=== PATIENT | female | born 1970 | race African-American/Black ===

== ENCOUNTER → 2020-03-30 | Outpatient (CLI) | payer BC ==
[~2020-03-30] MED LIST: REGADENOSON 0.4 MG/5 ML DISP.SYRIN. IV ONE
--- NOTE | 2020-03-31 11:50 | RAD ---
MR#: [id number] Date of Study: 03/31/2020 Ordering Physician: MALA DUENAS, Referring Physician: FILI BACA Tech: NICA Grande, ARRT (R) (N) APPROVED REPORT Test Type: Pharmacological Stress Nurse/Tech: Dewey Ricardo RN Test Indications: PreOP Surgery- Bariatric Sx Cardiac History: HTN, See EMR. Medications: See EMR. Medical History: See EMR. Resting ECG: SR Resting Heart Rate: 72 bpm Resting Blood Pressure: 129/66mmHg Pretest Chest Pain: No chest pain Nurse/Tech Notes Lungs CTA, Heart tones regular. Consent: The procedure was explained to the patient in lay terms. Informed consent was witnessed. Miguel eout was entered into [employer] [facility]. History and Stress Test performed by RT En (R) (N) Pharm. Details Pharmacologic stress testing was performed using 0.4mg per 5ml of regadenoson given intravenously ove r 7-10 seconds. Stress Symptoms No chest pain or symptoms. POST EXERCISE Reason for Termination: Infusion complete Max HR: 96 bpm Max Blood Pressure: 118/60mmHg Blood Pressure response to exercise: Normal blood pressure response during stress. Heart Rate response to exercise: WNL Chest Pain: No. Arrhythmia: No. ST Change: No. INTERPRETATION Stress EKG Conclusion: No evidence of stress induced EKG changes. Imaging Protocol IMAGE PROTOCOL: Rest Tc-99m/stress Tc-99m 2 days Rest: Stress: Viability: Radiopharm.Tc99m GqouietwhKk82h Sestamibi Bibd67nIp 31mCi Img Date 03/30/2020 03/31/2020 Inj-Img Nbog27htt. 60min. Rest Admin Site:IV - Left AntecubitalAdministrator:RT Gill (R)(N) Stress Admin Site: IV - Left AntecubitalAdministrator: RT Anais GaticaR)(N) STRESS DATA End Diast. Vol.109.0mlAv. Heart Rate85.0bpm End Syst. Vol.36.0mlCO Index BSA0.0L/min Myocardial Jbxk643.0gEject. Tudilukw88.0% Stress Rates Pk. Fill Rate3.18EDV/secLVtime Pk. Fill 104.95msec Pk. Empty Rate3.05ESV/secLVtime Pk. Eoxpq812.43msec /3 Pk. Fill2.22EDV/sec Stress Scores Regional WT0.00Summed WT1.00 Regional WM0.00Summed WM4.00 LV Perfusion Significant motion artifact precludes accurate assessment but grossly there appears to be a small sev ere intensity reversible defect at the apex. Rest images are obscured by artifact in the basal to mi d septal and anterior segments. Ejection fraction is normal at 65%. EKG is grossly unremarkable. LV Perf. Quant 17 Seg. SSS6.00 17 Seg. SRS0.00 17 Seg. SDS6.00 Stress Defect Extent (% LAD)6.90Rest Defect Extent (% LAD)2.50Rev. Defect Extent (% LAD)6.90 Stress Defect Extent (% LCX) 38.80Rest Defect Extent (% LCX)0.00Rev. Defect Extent (% LCX)38.80 Stress Defect Extent (% RCA)0.00Rest Defect Extent (% RCA)0.00Rev. Defect Extent (% RCA)0.00 Stress Defect Extent (% MARYANNE)13.70Rest Defect Extent (% MARYANNE)0.90Rev. Defect Extent (% MARYANNE)13.70 Other Information Quality:Poor Risk Assessment: Moderate Risk Conclusion 1. Overall, poor quality study. Rest images are obscured by subdiaphragmatic artifact. 2. Grossly no evidence of EKG changes to suggest ischemia 3. Probable small size severe intensity reversible defect located at the apex. No evidence of transi ent ischemic dilatation. 4. Normal ejection fraction with an EF greater than 60%. 5. Moderate risk study. Signed by : Alli Hicks, Electronically Approved : 03/31/2020 11:49:28
--- NOTE | 2020-03-31 15:54 | CARD ---
MR#: [id number] Date of Study: 03/31/2020 Ordering Physician: MALA DUENAS, Referring Physician: MALA DUENAS Tech: Berna Francis RDCS APPROVED REPORT EXAM: Two-dimensional and M-mode echocardiogram with Doppler and color Doppler. Other Information Quality : Good INDICATION Pre-Op Morbid Obesity 2D DIMENSIONS RVDd3.0 (2.9-3.5cm)Left Atrium(2D)3.7 (1.6-4.0cm) IVSd1.0 (0.7-1.1cm)Aortic Root(2D)2.5 (2.0-3.7cm) LVDd4.9 (3.9-5.9cm)LVOT Diameter2.0 (1.8-2.4cm) PWd1.1 (0.7-1.1cm)LVDs2.5 (2.5-4.0cm) FS (%) 30.0 %SV88.8 ml LVEF(%)60.0 (>50%) Aortic Valve AoV Peak Ronny.220.2cm/sAoV VTI37.9cm AO Peak GR.19.4mmHgLVOT Peak Ronny.165.1cm/s AO Mean GR.9mmHgAVA (VMAX)2.34cm2 GREGORY (VTI)2.50cm2 Mitral Valve MV E Gnxaetgm786.2cm/sMV DECEL [id number] MV A Ydymlphu49.4cm/sE/A Ratio1.2 Tricuspid Valve TR P. Exfbzjjb744xm/sRAP VZXAPEQX2pvXw TR Peak Gr.62miLxZHWQ61mxQh Pulmonary Vein S1 Keeutykb48.5cm/sD2 Xdaarobb29.0cm/s LEFT VENTRICLE The left ventricle is normal size. There is normal left ventricular wall thickness. The left ventricu lar systolic function is normal and the ejection fraction is within normal range. The Ejection Fracti on is 55-60%. There is normal LV segmental wall motion. The left ventricular diastolic function and f illing is normal for age. RIGHT VENTRICLE The right ventricle is normal size. The right ventricular systolic function is normal. ATRIA The left atrium size is normal. The right atrium size is normal. The interatrial septum is intact wit h no evidence for an atrial septal defect or patent foramen ovale as noted on 2-D or Doppler imaging. AORTIC VALVE The aortic valve is normal in structure and function. Doppler and Color Flow revealed no significant aortic regurgitation. There is no significant aortic valvular stenosis. MITRAL VALVE The mitral valve is normal in structure and function. There is no evidence of mitral valve prolapse. There is no mitral valve stenosis. Doppler and Color Flow revealed no mitral valve regurgitation note d. TRICUSPID VALVE The tricuspid valve is normal in structure and function. Doppler and Color Flow revealed no tricuspid valve regurgitation noted. There is no tricuspid valve stenosis. PULMONIC VALVE The pulmonic valve is not well visualized. Doppler and Color Flow revealed no pulmonic valvular regur gitation. There is no pulmonic valvular stenosis. GREAT VESSELS The aortic root is normal in size. The ascending aorta is normal in size. The IVC is normal in size a nd collapses >50% with inspiration. PERICARDIAL EFFUSION There is no evidence of significant pericardial effusion. Critical Notification Critical Value: No <Conclusion> The left ventricular systolic function is normal and the ejection fraction is within normal range. Th e Ejection Fraction is 55-60%. There is normal LV segmental wall motion. Signed by : Alli Hicks, Electronically Approved : 03/31/2020 15:54:18
== END | disposition home or self-care (01) ==
LOC: NM 08:51
PROVIDERS: ATTEND Internal Medicine Cardiovascular Disease
DX: Z01.810 Encounter for preprocedural cardiovascular examination (principal); I10 Essential (primary) hypertension
CPT/HCPCS: 78452; A9500; 93017; 93306; J2785

== ENCOUNTER → 2020-04-27 | Outpatient (CLI) | payer BC ==
--- NOTE | 2020-04-27 11:05 | RAD ---
AP and Lateral Views of the Chest 04/27/2020 12:00 AM Indication: Reason: SHORT OF AIR / Spl. Instructions: / History: Comparison: None Findings: There is no focal consolidation or infiltrate identified. The cardiomediastinal silhouette is within normal limits. There is no evidence of pneumothorax or pleural effusion. No acute osseous abnormalities are identified. Impression: No evidence of acute cardiopulmonary process. Electronically signed by: Ruddy Álvarez MD (04/27/2020 11:02 AM) [id number]
[2020-04-27 11:21] LABS: BASE EXCESS ABG 3 mmol/L (-3-3); HCO3 ABG 28 mmol/L (21-28); PCO2 ABG 44 mmHg (35-46); PO2 ABG 81 mmHg (75-108); SAT O2 ABG 95 % (92-99)
[2020-04-27 11:23] LABS: FIO2 ABG 21
== END ==
LOC: RAD 09:05
PROVIDERS: ATTEND Internal Medicine Critical Care Medicine
DX: Z01.812 Encounter for preprocedural laboratory examination (principal)
CPT/HCPCS: 71046; 82805

== ENCOUNTER → 2021-04-13 | Outpatient (CLI) | payer BC ==
--- NOTE | 2021-04-16 09:37 | CARD ---
MR#: [id number] Date of Study: 04/13/2021 Ordering Physician: MALA DUENAS, Referring Physician: MALA DUENAS Tech: Deidre Hodges [facility] APPROVED REPORT EXAM: Two-dimensional and M-mode echocardiogram with Doppler and color Doppler. Other Information Quality : AverageHR: 71bpm Rhythm : NSR INDICATION Palpitations RISK FACTORS Hypertension Obesity 2D DIMENSIONS RVDd3.0 (2.9-3.5cm)Left Atrium(2D)3.7 (1.6-4.0cm) IVSd0.9 (0.7-1.1cm)Aortic Root(2D)2.7 (2.0-3.7cm) LVDd4.4 (3.9-5.9cm)LVOT Diameter2.0 (1.8-2.4cm) PWd1.3 (0.7-1.1cm)LVDs2.9 (2.5-4.0cm) FS (%) 33.9 %SV54.3 ml LVEF(%)63.0 (>50%) Aortic Valve AoV Peak Ronny.169.3cm/sAoV VTI36.5cm AO Peak GR.11.5mmHgLVOT Peak Ronny.123.6cm/s AO Mean GR.6mmHgAVA (VMAX)2.32cm2 Mitral Valve MV E Pzrucksa466.8cm/sMV DECEL FMRY503yl MV A Kypqlgpa65.1cm/sE/A Ratio1.0 Pulmonary Valve PV Peak Igikalxj09.9cm/s Tricuspid Valve TR P. Ccgcdwre528mi/sTR Peak Gr.18mmHg LEFT VENTRICLE The left ventricle is normal size. There is borderline concentric left ventricular hypertrophy. The l eft ventricular systolic function is normal. Esitmated ejection fraction 60-65%. There is normal LV s egmental wall motion. The left ventricular diastolic function and filling is normal for age. RIGHT VENTRICLE The right ventricle is normal size. There is normal right ventricular wall thickness. The right ventr icular systolic function is normal. ATRIA The left atrium size is normal. The right atrium size is normal. The interatrial septum is intact wit h no evidence for an atrial septal defect or patent foramen ovale as noted on 2-D or Doppler imaging. AORTIC VALVE The aortic valve is normal in structure and function. Doppler and Color Flow revealed trace aortic re gurgitation. There is no significant aortic valvular stenosis. MITRAL VALVE The mitral valve is normal in structure and function. There is no evidence of mitral valve prolapse. There is no mitral valve stenosis. Doppler and Color-flow revealed mild mitral regurgitation. TRICUSPID VALVE The tricuspid valve is normal in structure and function. Doppler and Color Flow revealed trace tricus pid regurgitation. Estimated PAP 21 mmHg.. PULMONIC VALVE The pulmonary valve is normal in structure and function. Doppler and Color Flow revealed no pulmonic valvular regurgitation. GREAT VESSELS The aortic root is normal in size. The ascending aorta is normal in size. The IVC is normal in size a nd collapses >50% with inspiration. PERICARDIAL EFFUSION There is no evidence of significant pericardial effusion. Critical Notification Critical Value: No <Conclusion> The left ventricular systolic function is normal. Esitmated ejection fraction 60-65%. There is normal LV segmental wall motion. Mild mitral regurgitation. Trace tricuspid regurgitation. Estimated PAP 21 mmHg.. There is no evidence of significant pericardial effusion. Signed by : Mala Duenas, Electronically Approved : 04/16/2021 09:37:07
== END ==
LOC: ECHO 12:46
PROVIDERS: ATTEND Internal Medicine Cardiovascular Disease
DX: I34.0 Nonrheumatic mitral (valve) insufficiency (principal); I10 Essential (primary) hypertension; I51.7 Cardiomegaly
CPT/HCPCS: 93306